=== PATIENT | female | born 1990 | race Caucasian/White ===

== ENCOUNTER 2017-04-21 18:20 | Observation (INO) | payer OTHER ==
[2017-04-21] MEDS ORDERED: PREN1TAB80 PO (18:26)
[2017-04-21 18:45] VITALS: BP 113/70
== END 2017-04-21 21:15 | disposition home or self-care (01) ==
LOC: 4S 18:20
PROVIDERS: ADMIT Obstetrics & Gynecology; ATTEND Obstetrics & Gynecology
DX: O62.9 Abnormality of forces of labor, unspecified (principal); O26.893 Other specified pregnancy related conditions, third trimester; R10.30 Lower abdominal pain, unspecified; Z3A.39 39 weeks gestation of pregnancy
CPT/HCPCS: 59025; G0378

== ENCOUNTER 2017-04-22 20:18 | Inpatient (IN) | payer OTHER ==
[~2017-04-22] VITALS: Ht 149.9 cm; Wt 71.2 kg
[~2017-04-22 20:18] MED LIST: PREN1TAB80 PO
[2017-04-22 21:08] VITALS: BP 115/73
[2017-04-22] MEDS ORDERED: RINGERS SOLUTION,LACTATED 1,000 ML IV ONE (21:37)
[2017-04-22] MEDS ORDERED: OXYTOCIN 30 UNITS/LACT RINGERS 500 ML IV ONE (21:37)
[2017-04-22] MEDS ORDERED: CITRIC ACID/SODIUM CITRATE 30 ML SOLUTION UDCUP PO PRN (21:45)
[2017-04-22] MEDS ORDERED: METOCLOPRAMIDE HCL 5 MG/ML 2 ML VIAL IVP PRN (21:45)
[2017-04-22] MEDS ORDERED: LIDOCAINE HCL/PF 1% 30 ML VIAL INJ PRN (21:45)
[2017-04-22] MEDS: RINGERS SOLUTION,LACTATED 1,000 ML IV SCH (22:20)
[2017-04-22 22:26] LABS: BASOPHILS % (AUTO) 1.4 % (0.0-2.0); EOSINOPHILS % (AUTO) 0.5 % (1.0-6.0); HEMATOCRIT 36.2 % (36-46); HEMOGLOBIN 12.4 g/dL (12.0-16.0); LYMPHOCYTES # (AUTO) 3.1 K/uL (1.0-4.8); LYMPHOCYTES % (AUTO) 25.6 % (22.0-44.0); MEAN CORPUSCULAR HEMOGLOBIN 29.6 pg (26.0-34.0); MEAN CORPUSCULAR HGB CONC 34.3 G/dL (31.0-37.0); MEAN CORPUSCULAR VOLUME 86 fL (80-100); MONOCYTES # (AUTO) 0.7 K/uL (0.1-1.0); MONOCYTES % (AUTO) 5.7 % (2.0-9.0); NEUTROPHILS % (AUTO) 66.8 % (40.0-70.0); PLATELET COUNT (AUTO)-OB 382 K/uL (150-450); RED CELL DISTRIBUTION WIDTH 13.8 % (11.5-14.5)
[2017-04-22 22:46] VITALS: BP 122/83
[2017-04-22] MEDS: FentaNYL CITRATE-PF 100 MCG/2 ML VIAL IVP PRN ×2 (22:59→23:05)
[2017-04-22] MEDS ORDERED: INFLUENZA VIRUS VACCINE QVS 2017-18 (3YR+)/PF 60 MCG/0.5 ML SYRINGE IM ONE (23:15)
[2017-04-23] MEDS ORDERED: ROPIVACAINE HCL 0.2% 100 ML ED ONE ×2 (00:48→08:21)
[2017-04-23] MEDS ORDERED: POVIDONE-IODINE 10% 240 ML SOLUTION TP ONE (00:59)
[2017-04-23] MEDS: RINGERS SOLUTION,LACTATED 1,000 ML IV SCH ×3 (01:01→04:27)
[2017-04-23] MEDS ORDERED: OXYTOCIN 20 UNITS/LACT RINGERS 1,000 ML IV ONE ×2 (10:47→11:15)
[2017-04-23] MEDS ORDERED: OXYTOCIN 30 UNITS/LACT RINGERS 500 ML IV ONE (11:05)
[2017-04-23] MEDS ORDERED: GLYCERIN/WITCH HAZEL LEAF 40 PADS JAR TP PRN (11:15)
[2017-04-23] MEDS ORDERED: LANOLIN 7 GM OINTMENT TP PRN (11:15)
[2017-04-23] MEDS ORDERED: OxyCODONE HCL/ACETAMINOPHEN 5-325 MG TABLET PO PRN ×2 (11:15)
[2017-04-23] MEDS ORDERED: BENZOCAINE 20%/MENTHOL 56 GM SPRAY CANISTER TP PRN (11:15)
[2017-04-23] MEDS ORDERED: LIDOCAINE HCL/PF 1% 30 ML VIAL INJ PRN (11:15)
[2017-04-23] MEDS: IBUPROFEN 800 MG TABLET PO PRN ×2 (12:52→19:50)
[2017-04-23] MEDS: MAGNESIUM HYDROXIDE SUSPENSION 30 ML UDCUP PO PRN (19:49)
[2017-04-24 05:01] LABS: BASOPHILS % (AUTO) 1.1 % (0.0-2.0); EOSINOPHILS % (AUTO) 0.4 % (1.0-6.0); HEMATOCRIT 31.5 % (36-46); HEMOGLOBIN 10.7 g/dL (12.0-16.0); LYMPHOCYTES # (AUTO) 2.9 K/uL (1.0-4.8); LYMPHOCYTES % (AUTO) 19.6 % (22.0-44.0); MEAN CORPUSCULAR HEMOGLOBIN 29.7 pg (26.0-34.0); MEAN CORPUSCULAR HGB CONC 34.1 G/dL (31.0-37.0); MEAN CORPUSCULAR VOLUME 87 fL (80-100); MONOCYTES # (AUTO) 0.9 K/uL (0.1-1.0); MONOCYTES % (AUTO) 5.9 % (2.0-9.0); NEUTROPHILS # (AUTO) 10.8 K/uL (1.8-7.7); PLATELET COUNT (AUTO)-OB 330 K/uL (150-450); RED BLOOD CELL COUNT(AUTO) 3.62 MIL/uL (4.00-5.20); RED CELL DISTRIBUTION WIDTH 13.7 % (11.5-14.5)
[2017-04-24] MEDS: MAGNESIUM HYDROXIDE SUSPENSION 30 ML UDCUP PO PRN (07:59)
[2017-04-24] MEDS: IBUPROFEN 800 MG TABLET PO PRN ×2 (08:00→13:44)
[2017-04-24] MEDS ORDERED: IBUP-2071 PO (10:29)
[2017-04-24] MEDS ORDERED: FERR-89 PO (10:30)
[2017-04-24] MEDS ORDERED: DSS100 PO (10:31)
== END 2017-04-24 13:55 | disposition home or self-care (01) | DRG 775 ==
LOC: OBSVTOIN 20:19 → 4S 20:19
PROVIDERS: ADMIT Obstetrics & Gynecology; ATTEND Obstetrics & Gynecology
PROC: 3E0R3BZ Introduction of Anesthetic Agent into Spinal Canal, Percutaneous Approach (ICD-10-PCS; 2017-04-22)
PROC: 00HU33Z Insertion of Infusion Device into Spinal Canal, Percutaneous Approach (ICD-10-PCS; 2017-04-22)
PROC: 3E0234Z Introduction of Serum, Toxoid and Vaccine into Muscle, Percutaneous Approach (ICD-10-PCS; 2017-04-22)
PROC: 10E0XZZ Delivery of Products of Conception, External Approach (ICD-10-PCS; principal; 2017-04-23)
PROC: 0W8NXZZ Division of Female Perineum, External Approach (ICD-10-PCS; 2017-04-23)
DX: O69.81X0 Labor and delivery complicated by cord around neck, without compression, not applicable or unspecified (principal); O66.0 Obstructed labor due to shoulder dystocia; Z37.0 Single live birth; Z3A.39 39 weeks gestation of pregnancy; Z23 Encounter for immunization
CPT/HCPCS: 86850; 86900; 86901; 90471; J2590; J2795; J3010; J7120

== ENCOUNTER 2018-05-04 19:45 | Inpatient (IN) | payer OTHER ==
[~2018-05-04] VITALS: Ht 152 cm; Wt 70.3 kg
[2018-05-04] MEDS ORDERED: OXYTOCIN 30 UNITS/LACT RINGERS 500 ML IV ONE (20:46)
[2018-05-04] MEDS ORDERED: RINGERS SOLUTION,LACTATED 1,000 ML IV PRN (20:46)
[2018-05-04 20:59] VITALS: BP 105/61
[2018-05-04] MEDS ORDERED: METOCLOPRAMIDE HCL 5 MG/ML 2 ML VIAL IVP PRN (21:00)
[2018-05-04] MEDS ORDERED: METHYLERGONOVINE MALEATE 0.2 MG/ML VIAL IM PRN (21:00)
[2018-05-04] MEDS ORDERED: FentaNYL CITRATE-PF 100 MCG/2 ML VIAL IVP PRN (21:00)
[2018-05-04] MEDS ORDERED: CITRIC ACID/SODIUM CITRATE 30 ML SOLUTION UDCUP PO PRN (21:00)
[2018-05-04 21:40] LABS: BASOPHILS % (AUTO) 0.3 % (0.0-2.0); EOSINOPHILS % (AUTO) 0.4 % (1.0-6.0); HEMATOCRIT 33.8 % (36-46); HEMOGLOBIN 11.5 g/dL (12.0-16.0); LYMPHOCYTES # (AUTO) 3.3 K/uL (1.0-4.8); LYMPHOCYTES % (AUTO) 32.6 % (22.0-44.0); MEAN CORPUSCULAR HEMOGLOBIN 28.7 pg (26.0-34.0); MEAN CORPUSCULAR VOLUME 84 fL (80-100); MONOCYTES # (AUTO) 0.6 K/uL (0.1-1.0); MONOCYTES % (AUTO) 5.5 % (2.0-9.0); NEUTROPHILS # (AUTO) 6.2 K/uL (1.8-7.7); NEUTROPHILS % (AUTO) 61.2 % (40.0-70.0); PLATELET COUNT (AUTO)-OB 348 K/uL (150-450); RED CELL DISTRIBUTION WIDTH 13.5 % (11.5-14.5)
[2018-05-04] MEDS ORDERED: RINGERS SOLUTION,LACTATED 1,000 ML IV SCH (21:51)
[2018-05-04] MEDS ORDERED: MISOPROSTOL 25 MCG TABLET PO SCH (22:00)
[2018-05-05] MEDS: RINGERS SOLUTION,LACTATED 1,000 ML IV SCH ×2 (01:31→05:10)
[2018-05-05] MEDS ORDERED: MISOPROSTOL 50 MCG TABLET PO SCH (02:00)
[2018-05-05] MEDS ORDERED: ROPIVACAINE HCL/PF 0.2% 100 ML ED ONE (02:18)
[2018-05-05] MEDS ORDERED: LIDOCAINE/PF 2% 5 ML VIAL ONE (02:18)
[2018-05-05] MEDS ORDERED: NALBUPHINE HCL 10 MG/ML VIAL IVP PRN (02:45)
[2018-05-05] MEDS ORDERED: ROPIVACAINE HCL/PF 0.2% 100 ML ED PRN (02:45)
[2018-05-05] MEDS ORDERED: DiphenhydrAMINE HCL 50 MG/ML VIAL IVP PRN (02:45)
[2018-05-05] MEDS ORDERED: ONDANSETRON HCL 4 MG/2 ML VIAL IVP PRN (02:45)
[2018-05-05] MEDS ORDERED: OXYTOCIN 30 UNITS/LACT RINGERS 500 ML IV PRN (04:05)
[2018-05-05] MEDS ORDERED: OXYGEN THERAPY IH SCH (08:00)
[2018-05-05] MEDS ORDERED: GLYCERIN/WITCH HAZEL LEAF 40 PADS JAR TP PRN (09:00)
[2018-05-05] MEDS ORDERED: ACETAMINOPHEN/CODEINE 300-30 MG TABLET PO PRN ×2 (09:00)
[2018-05-05] MEDS ORDERED: BENZOCAINE 20%/MENTHOL 56 GM SPRAY CANISTER TP PRN (09:00)
[2018-05-05] MEDS: MAGNESIUM HYDROXIDE SUSPENSION 30 ML UDCUP PO SCH ×2 (09:00→19:48)
[2018-05-05] MEDS ORDERED: LANOLIN 7 GM OINTMENT TP PRN (09:00)
[2018-05-05] MEDS: IBUPROFEN 800 MG TABLET PO SCH ×2 (13:36→19:47)
[2018-05-06] MEDS: IBUPROFEN 800 MG TABLET PO SCH ×2 (01:25→08:31)
[2018-05-06] MEDS: MAGNESIUM HYDROXIDE SUSPENSION 30 ML UDCUP PO SCH (08:31)
[2018-05-06] MEDS ORDERED: IBUP-2071 PO (10:54)
[2018-05-06] MEDS ORDERED: DSS100 PO (10:55)
== END 2018-05-06 13:15 | disposition home or self-care (01) | DRG 806 ==
LOC: 4S 19:45 → OBSVTOIN 19:45
PROVIDERS: ADMIT Obstetrics & Gynecology; ATTEND Obstetrics & Gynecology
PROC: 10E0XZZ Delivery of Products of Conception, External Approach (ICD-10-PCS; principal; 2018-05-04)
PROC: 3E0R3BZ Introduction of Anesthetic Agent into Spinal Canal, Percutaneous Approach (ICD-10-PCS; 2018-05-04)
PROC: 00HU33Z Insertion of Infusion Device into Spinal Canal, Percutaneous Approach (ICD-10-PCS; 2018-05-04)
DX: O69.81X0 Labor and delivery complicated by cord around neck, without compression, not applicable or unspecified (principal); O41.03X0 Oligohydramnios, third trimester, not applicable or unspecified; Z37.0 Single live birth; Z3A.38 38 weeks gestation of pregnancy
CPT/HCPCS: 86850; 86900; 86901; J2590; J2795; J3490; J7120